=== PATIENT | female | born 1960 | race Two or more races ===

== ENCOUNTER 2022-06-21 08:55 | Outpatient (CLI) | payer OTHER | END 2022-06-21 08:56 | disposition home or self-care (01) | LOC: LAB 08:55 | PROVIDERS: ATTEND Student in an Organized Health Care Education/Training Program | DX: E11.65 Type 2 diabetes mellitus with hyperglycemia (principal); E78.2 Mixed hyperlipidemia; I10 Essential (primary) hypertension; E03.8 Other specified hypothyroidism; C73 Malignant neoplasm of thyroid gland ==